=== PATIENT | male | born 1960 | race Caucasian/White ===

== ENCOUNTER 2017-04-02 12:17 | Outpatient (CLI) ==
[2016-04-15 14:48] VITALS: BMI 32.1
--- NOTE | 2017-04-02 13:39 | DI ---
Exam: Six x-rays of the lumbar spine. Comparison: CT abdomen pelvis performed on 12/31/2015. Reason for exam: Disc degeneration. FINDINGS: No acute fracture. There is a grade 1 retrolithesis of L3 on L4. Multilevel degenerative disease is seen with intervertebral body disc space height loss and osteophyte formation. There is straightening of the lumbar lordotic curve. Surgical clips are seen in the right upper quadrant cons istent with gallbladder removal. Impression: 1. No acute fracture in the lumbar spine. 2. Grade 1 retrolisthesis of L3 on L4. 3. Multilevel degenerative disease with intervertebral body disc space height loss, facet hypertroph y, and osteophyte formation. If clinical concern exists for radiculopathy or myelopathy, MRI may be p erformed.
--- NOTE | 2017-04-02 13:41 | DI ---
EXAM: Six views of the cervical spine. History: Status post laminectomy Findings: Grossly intact anterior fusion hardware at C5-C7. No acute fracture or subluxation. Mini mal retrolisthesis of C2 on C3 most likely degenerative in nature. Mild to moderate disc space narro wing at the unfused levels with prominent anterior osteophytes. No prevertebral soft tissue swelling . Predental space is not widened. The oblique images demonstrate multilevel bilateral bony neural fo raminal narrowing that is most significant at to C5-6 Impression: No acute osseous abnormality of the cervical spine. Grossly intact hardware.
== END 2017-04-02 12:18 | disposition home or self-care (01) ==
LOC: RAD 12:17
PROVIDERS: ATTEND Pain Medicine Interventional Pain Medicine
DX: M51.16 Intervertebral disc disorders with radiculopathy, lumbar region (principal); M51.36 Other intervertebral disc degeneration, lumbar region; M48.061 Spinal stenosis, lumbar region without neurogenic claudication; M96.1 Postlaminectomy syndrome, not elsewhere classified; M50.31 Other cervical disc degeneration, high cervical region; M50.222 Other cervical disc displacement at C5-C6 level; M47.812 Spondylosis without myelopathy or radiculopathy, cervical region